=== PATIENT | male | born 1990 | race Caucasian/White ===

== ENCOUNTER 2020-07-21 07:09 | Day surgery (SDC) | payer BC, SELFPAY ==
[2020-07-21] VITALS (8 sets, daily range): BP systolic 117–159; BP diastolic 83–106; PULSE 60–74; RESP 16–18; TEMP 36.2–37; O2SAT 95–100; BMI 24.9
--- NOTE | 2020-07-21 | TUR_PTH ---
PATIENT: GANESH AGUILERA LOC: [facility] U#:[id number] AGE/SX: 29/M ROOM: RE07/21/[address]: Dr. Tono Bryson MD : 1990 BED: DIS: 07/21/2020 SPEC #: [id number] RECD: 07/21/20 11:47 STATUS: PANFILO REMike #: [id number] SUJATHA: 07/21/20 00:[address]: Tono Bryson DEPT: SURGICAL PATHOLOGY RECD BY: Adrian Kim ENTERED: 07/21/20 13:10 SP TYPE: TURBINATES OTHR DR: Dr. Adam Fontana DO Tissues: Nasal turbinate, NOS Procedures: Decalcification bone/plaque Surgery Specimen Level III HEADER OPERATION: Septoplasty, submucous resection inferior turbinates PRE-OP DIAGNOSIS: Deviated nasal septum, hypertrophy of nasal turbinates TISSUE SUBMITTED: Septal contents MICROSCOPIC DIAGNOSIS Septal contents: Fragments of cartilage and bone, clinically deviated nasal septum. AILYN:pascual 07/26/20 MICROSCOPIC DESCRIPTION Slides are reviewed. GROSS DESCRIPTION Received in fixative is one container labeled with the patient's name and designated septal contents. The specimen consists of multiple irregular fragments of cartilage and bone that in aggregate measure 4 x 2.5 x 0.5 cm. Director Of Diversity And Inclusion tissue is submitted in one cassette after decalcification. / AILYN:pascual 07/21/20 TC:5 CPT: 64089, 92337
[2020-07-21] MEDS: Lactated Ringers 1,000 ML 100 ML IV ×2 (07:58→10:29)
[2020-07-21] MEDS: Oxymetazoline 0.05% 1 SPRAY SPRAY.BTL 15 SPRAY (09:17)
[2020-07-21] MEDS: Lidocaine 4% 50 ML Bottle (09:23)
[2020-07-21] MEDS: Bacitracin 500 UNITS/GM PACKET (09:30)
--- NOTE | 2020-07-21 09:54 | OP.PCM_ITS ---
Problem List (1) Deviated nasal septum Status: Acute (2) Hypertrophy of both inferior nasal turbinates Status: Acute Report of Operation Date of Procedure: 07/21/20 Pre-Operative Diagnosis: Deviated nasal septum, hypertrophy of inferior nasal turbinates Post-Operative Diagnosis: Same Surgery/Procedure Performed:: Septoplasty, bilateral submucous resection of inferior nasal turbinates Description of Surgical Findings:: Delmar is a 29-year-old male presents for evaluation of chronic nasal obstruction failing appropriate medical therapy as well as recurrent epistaxis. Examination showed marketed nasal septal deviation and hypertrophied inferior nasal turbinates and the biopsy was offered hopes alleviation of these complaints. The risks of coronavirus exposure in this time period was also reviewed and he was agreeable to accept this risk in exchange for alleviation of his underlying chronic complaints. The risks, alternatives, potential complications, and benefits were discussed at length and any questions answered to the patient and/or caregiver's satisfaction. Witnessed informed consent was obtained in the office, and the patient and/or caregiver was agreeable to proceed. Procedure went as follows: The patient was identified in the preoperative holding and brought to the operating room, was placed under general anesthesia a nd intubated. When appropriate anesthesia was obtained, pledgets soaked in a 50-50 mixture of oxymetazoline and 4% topical lidocaine were placed to decongest the nasal mucosa. The nasal septum was then injected beginning on the left side with 1% lidocaine with 100,000 epinephrine for a total of 5 mL. The pledgets were then removed and the left nasal cavity examined. There was noted to be significant nasal septal deviation to the left. Using a 15 blade scalpel, a hemitransfixion incision was then made on the left side and using the Graham elevator a subperichondrial/periosteal flap was elevated. The septum was then transected at the bony cartilaginous junction and a similar flap raised on the contralateral side. Using a Jesus forceps, the septum was then sharply transected superiorly and the deviated portions removed with a Elise forceps. Any inferior bony spur was then removed with a chisel allowing for midline placement of the nasal septum. The hemitransfixion incision was then closed with interrupted 4-0 chromic gut suture followed by a 4-0 plain quilting suture to reapproximate the mucosal flaps. Attention was then turned to the inferior nasal turbinates. Beginning on the left side, the anterior aspect of the inferior turbinate was then injected with 1% lidocaine with 100,000 epinephrine for a total of 2.5 mL bilaterally. Again beginning on the left side a 15 blade scalpel was used to create a stab incision in the anterior aspect of the turbinate. A caudal elevator was then used to elevate a submucosal plane. Using the microdebrider, the anterior bony and intervening submucosal tissue was then removed resulting in reduction of the inferior turbinate. Similar procedure was then completed on the contralateral side. Bearden splints were then applied after coating with bacitracin ointment and secured to the columella with a single 3-0 Prolene suture. An NG tube was placed to decompress the stomach and [facility] was revived and extubated having tolerated the procedure well without complications. Type of Anesthesia:: General Anesthesiologist: Earnest Peña Special Medications: none Specimen's removed: septal and turbinate contents Drains: none Estimated Blood Loss (mL): 25 mL Fluids Replaced: 1000 mL Grafts/Implants Used: Bearden splints - Complications none - Admit VTE Documentation VTE Present on Admission: No VTE Mechan Device Prophylaxis: SCD's VTE Pharm Prophylaxis ordered?: No
--- NOTE | 2020-07-21 09:59 | DCINST_ITS ---
- Discharge Diagnoses Current Active Problems: Current Active and Chronic Problems Deviated nasal septum (Acute) Hypertrophy of both inferior nasal turbinates (Acute) You will use the following diet at home:: No restrictions Your food should be the consistency of: Regular Discharge Activity: Return to Normal Activity, May not drive while taking narcotic pain medications. Call your doctor if your incision/area has: Sudden Increased Bleeding, Foul Smelling Discharge Call your doctor if you observe: Fever of 101 or Higher, Uncontrolled pain Allergies/Adverse Reactions: Allergies No Known Allergies Allergy (Verified 07/21/20 07:38) Medications to take at Discharge Albuterol IH (ProAir) [Proair Hfa (SP)Vent Pts] 1 - 2 puff INHALATION Q6H PRN PRN 07/13/20 Fluticasone/Vilanterol [Breo Ellipta Inhaler] 1 ea IH DAILY 07/13/20 Primary Care Physician: Adam Fontana DO [Primary Care Provider] - Test Results: Test results from this visit will be discussed in further detail at your follow- up appointment, if applicable. Please Follow Up With: Tono Bryson MD When: 5 days
[2020-07-21] MEDS: HYDROcodone Bitartrate/Apap 5/325 Tablet PO (11:28)
[2020-07-21] MEDS: Ondansetron 4 MG/2 ML Vial IV (12:30)
== END 2020-07-21 13:07 | disposition home or self-care (01) ==
LOC: SDC 07:12 → AC 07:12
PROVIDERS: Anesthesiology; PCP Preventive Medicine Occupational Medicine; Referring Provider Otolaryngology; Visit Provider Otolaryngology
PROC: (CPT 30520; principal; 2020-07-21 08:40)
DX: J34.2 Deviated nasal septum (principal); J34.3 Hypertrophy of nasal turbinates; J45.909 Unspecified asthma, uncomplicated; Z11.59 Encounter for screening for other viral diseases; Z87.891 Personal history of nicotine dependence; Z79.51 Long term (current) use of inhaled steroids
CPT/HCPCS: 00160; 30140; 30520; 87635; 88304; 88311; C9803; J7120; J2405; U0003